=== PATIENT | female | born 1975 | race Caucasian/White ===

== ENCOUNTER 2016-09-21 17:45 | Emergency (ER) | payer OTHER ==
[~2016-09-21] VITALS: Ht 149.9 cm; Wt 80.6 kg
[~2016-09-21 17:45] MED LIST: ACARBOSE50 MG PO; ASPIR-TRIN325 M1 PO; B12 5,000 MCG1 EACH SL; CALTRATE 6001 TABLE2 PO; CARAFATE100 MG/ML PO; COBAL-10001000 MCG/2 IM; CYCLOBENZAPRINE10 MG PO; Cipro PO; FERGON324 MG PO; FLEXERIL5 MG PO; HYDROCODON-ACE1 EAC7 PO; IRON PO; IRON325 M1 PO; MULTIVITAMIN1 EAC1 PO; NEURONTIN300 MG OP; NORCO 5/3251 TABLET PO; PRECOSE50 MG PO; PROTONIX40 MG PO; SERTRALINE HCL100 MG PO; TRAMADOL HCL50 MG PO; VALIUM2 MG PO
[2016-09-21] MEDS ORDERED: INDOCIN50 MG PO (18:42)
[2016-09-21 19:04] VITALS: BP 142/89
== END 2016-09-21 19:07 | disposition home or self-care (01) ==
LOC: RME 17:45 → EME 17:45 → RME 19:07
DX: S29.011A Strain of muscle and tendon of front wall of thorax, initial encounter (principal); F17.200 Nicotine dependence, unspecified, uncomplicated; Z98.84 Bariatric surgery status
CPT/HCPCS: 71020; 99281; 99285; J1885; J3010

== ENCOUNTER 2016-09-27 20:07 | Emergency (ER) | payer OTHER ==
[~2016-09-27] VITALS: Ht 149.9 cm; Wt 80.8 kg
[~2016-09-27 20:07] MED LIST changes: +INDOCIN50 MG PO
[2016-09-27 20:48] LABS: HEMATOCRIT 35.6 % (36.0-46.0); MCH 23.5 PG (29.0-34.0); MCHC 30.3 G/DL (30.0-36.0); MCV 77.4 FL (83-99); PLATELET COUNT 428 K/uL (156-360); RBC DIS.WIDTH-CV 15.7 % (11.8-14.6); RBC DIS.WIDTH-SD 43.7 % (39-53); WHITE BLOOD COUNT 8.7 K/uL (4.1-10.2)
[2016-09-27 21:11] LABS: CHLORIDE 107 mEq/L (99-109); SODIUM 138 mEq/L (136-147)
[2016-09-27 21:13] LABS: GLUCOSE 99 mg/dL (70-99)
[2016-09-27 21:15] LABS: ANION GAP 9 MEQ/L (2-14); TOTAL BILIRUBIN 0.3 mg/dL (0.0-1.0)
[2016-09-27 21:17] LABS: ALKALINE PHOSPHATASE 121 IU/L (3-129); GFR ESTIMATE (CALCULATED) > 59 mL/min/
[2016-09-27 21:18] LABS: UREA NITROGEN (BUN) 11 mg/dL (9-23)
[2016-09-27 21:30] LABS: QUANTITATIVE HCG < 4.0 MIU/ML
[2016-09-27 23:47] LABS: ADD MIUA? YES; BILIRUBIN NEGATIVE; BLOOD SMALL; COLOR YELLOW ((YELLOW)); GLUCOSE (STRIP) NEGATIVE; KETONES NEGATIVE; LEUKOCYTES LARGE; NITRITE NEGATIVE; PROTEIN (STRIP) NEGATIVE; SPECIFIC GRAVITY 1.004 (1.000-1.030); UROBILINOGEN 0.2 MG/DL (0.2-1.0)
[2016-09-28] MEDS ORDERED: MIRALAX255 GM PO (00:09)
[2016-09-28] MEDS ORDERED: BENTYL20 MG PO (00:09)
[2016-09-28 00:21] LABS: BACTERIA 2+ /HPF; CASTS NONE SEEN /LPF; EPITHELIAL CELLS 3+ /HPF; MUCUS NONE SEEN /LPF; RED BLOOD CELLS 0-5 /HPF (0-5); UCUL ADDED? YES; WHITE BLOOD CELLS 30-40 /HPF (0-5)
[2016-09-28 00:22] LABS: CRYSTALS NONE SEEN
[2016-09-28 00:33] VITALS: BP 119/76
== END 2016-09-28 00:35 | disposition home or self-care (01) ==
LOC: EME 20:07
DX: K59.00 Constipation, unspecified (principal); K52.9 Noninfective gastroenteritis and colitis, unspecified; R39.15 Urgency of urination; Z98.84 Bariatric surgery status; Z87.442 Personal history of urinary calculi; F17.200 Nicotine dependence, unspecified, uncomplicated
CPT/HCPCS: 74000; 74176; 80053; 81003; 84702; 85027; 87086; 99281; 99283

== ENCOUNTER 2017-01-02 10:37 | Emergency (ER) | payer OTHER ==
[~2017-01-02] VITALS: Ht 149.9 cm; Wt 74.3 kg
[~2017-01-02 10:37] MED LIST changes: +BENTYL20 MG PO; +MIRALAX255 GM PO
[2017-01-02 12:02] LABS: ADD MIUA? NO; BILIRUBIN NEGATIVE; BLOOD NEGATIVE; COLOR YELLOW ((YELLOW)); GLUCOSE (STRIP) NEGATIVE; KETONES NEGATIVE; LEUKOCYTES NEGATIVE; NITRITE NEGATIVE; PROTEIN (STRIP) NEGATIVE; SPECIFIC GRAVITY 1.005 (1.000-1.030); UCUL ADDED? NO; UROBILINOGEN 0.2 MG/DL (0.2-1.0)
[2017-01-02 12:08] LABS: HEMATOCRIT 34.1 % (36.0-46.0); MCH 23.1 PG (29.0-34.0); MCHC 30.5 G/DL (30.0-36.0); MCV 75.8 FL (83-99); MEAN PLAT.VOLUME 10.6 uM^3 (9.5-12.4); PLATELET COUNT 370 K/uL (156-360); RBC DIS.WIDTH-SD 43.6 % (39-53); WHITE BLOOD COUNT 11.7 K/uL (4.1-10.2)
[2017-01-02 12:22] LABS: CHLORIDE 105 mEq/L (99-109); POTASSIUM 4.7 mEq/L (3.7-5.4); SODIUM 135 mEq/L (136-147)
[2017-01-02 12:24] LABS: GLUCOSE 108 mg/dL (70-99)
[2017-01-02 12:25] LABS: ANION GAP 6 MEQ/L (2-14)
[2017-01-02 12:26] LABS: TOTAL BILIRUBIN 0.7 mg/dL (0.0-1.0)
[2017-01-02 12:27] LABS: ALKALINE PHOSPHATASE 103 IU/L (3-129)
[2017-01-02 12:28] LABS: GFR ESTIMATE (CALCULATED) > 59 mL/min/
[2017-01-02 12:29] LABS: UREA NITROGEN (BUN) 10 mg/dL (9-23)
[2017-01-02 12:31] LABS: LIPASE 14 U/L (1.0-51.0)
[2017-01-02 12:39] LABS: QUANTITATIVE HCG < 4.0 MIU/ML
[2017-01-02] MEDS ORDERED: NORCO 5/3251 TABLET PO (13:16)
[2017-01-02] MEDS ORDERED: BENTYL20 MG PO (13:16)
[2017-01-02 13:28] VITALS: BP 125/65
== END 2017-01-02 13:29 | disposition home or self-care (01) ==
LOC: EME 10:37
DX: R10.30 Lower abdominal pain, unspecified (principal); R00.1 Bradycardia, unspecified; F17.200 Nicotine dependence, unspecified, uncomplicated; Z98.84 Bariatric surgery status; Z87.442 Personal history of urinary calculi; Z90.49 Acquired absence of other specified parts of digestive tract
CPT/HCPCS: 74000; 80053; 81003; 83690; 84702; 85027; 99281; 99283

== ENCOUNTER 2017-02-14 18:31 | Emergency (ER) | payer OTHER ==
[~2017-02-14] VITALS: Ht 149.9 cm; Wt 70.6 kg
[2017-02-14 19:52] LABS: HEMATOCRIT 33.6 % (36.0-46.0); MCH 23.4 PG (29.0-34.0); MCHC 31.3 G/DL (30.0-36.0); MEAN PLAT.VOLUME 9.7 uM^3 (9.5-12.4); PLATELET COUNT 369 K/uL (156-360); RBC DIS.WIDTH-CV 16.5 % (11.8-14.6); RBC DIS.WIDTH-SD 44.5 % (39-53); RED BLOOD COUNT 4.48 M/uL (3.80-5.20); WHITE BLOOD COUNT 9.1 K/uL (4.1-10.2)
[2017-02-14 20:11] LABS: ANION GAP 10 MEQ/L (2-14); CHLORIDE 109 MEQ/L (99-109); POTASSIUM 3.9 MEQ/L (3.7-5.4); SAMPLE HEMOLYSIS CHECK 0; SAMPLE ICTERIC CHECK 0; SAMPLE LIPEMIA CHECK 0; SODIUM 141 MEQ/L (136-147)
[2017-02-14 20:35] LABS: QUANTITATIVE HCG < 4.0 MIU/ML
[2017-02-14 20:36] LABS: GFR ESTIMATE (CALCULATED) > 59 mL/min/; GLUCOSE 97 mg/dL (70-99); SERUM ETHYL ALCOHOL < 10 mg/dL; UREA NITROGEN (BUN) 8 mg/dL (9-23)
[2017-02-14 21:12] LABS: ADD MEDTOX COMMENT Y; AMPHETAMINE NEGATIVE (500 ng/mL); BARBITURATES NEGATIVE (200 ng/mL); BENZODIAZEPINES PRESUMPTIVE POSITIVE (150 ng/mL); COCAINE NEGATIVE (150 ng/mL); INTERNAL CONTROLS VALID? YES; METHADONE NEGATIVE (200 ng/mL); METHAMPHETAMINE NEGATIVE (500 ng/mL); OPIATES (MORPHINE) NEGATIVE (100 ng/mL); OXYCODONE NEGATIVE (100 ng/mL); PHENCYCLIDINE NEGATIVE (25 ng/mL); PROPOXYPHENE NEGATIVE (300 ng/mL); THC CANNABINOIDS NEGATIVE (50 ng/mL); TRICYCLIC ANTIDEPRESSANTS NEGATIVE (300 ng/mL)
[2017-02-14 21:56] VITALS: BP 136/92
[2017-02-14 22:01] LABS: BENZODIAZEPINES QUANT VALUE 0 NG/ML; BENZODIAZEPINES, URINE SCREEN Negative (200 ng/mL)
== END 2017-02-14 21:57 | disposition home or self-care (01) ==
LOC: EME 18:31
PROVIDERS: Emergency Medicine
DX: F33.2 Major depressive disorder, recurrent severe without psychotic features (principal); F60.3 Borderline personality disorder; F17.200 Nicotine dependence, unspecified, uncomplicated; Z87.442 Personal history of urinary calculi; Z98.84 Bariatric surgery status
CPT/HCPCS: 80048; 84702; 84999; 85027; 90839; 99281; 99285; G0480

== ENCOUNTER 2017-04-25 10:45 | Emergency (ER) | payer OTHER ==
[~2017-04-25] VITALS: Ht 149.9 cm; Wt 69.1 kg
[2017-04-25 11:38] LABS: HEMATOCRIT 36.3 % (36.0-46.0); MCH 23.2 PG (29.0-34.0); MCHC 30.6 G/DL (30.0-36.0); MCV 75.9 FL (83-99); MEAN PLAT.VOLUME 10.1 uM^3 (9.5-12.4); PLATELET COUNT 448 K/uL (156-360); RBC DIS.WIDTH-CV 15.4 % (11.8-14.6); RBC DIS.WIDTH-SD 42.4 % (39-53); RED BLOOD COUNT 4.78 M/uL (3.80-5.20); WHITE BLOOD COUNT 8.1 K/uL (4.1-10.2)
[2017-04-25 11:47] LABS: CHLORIDE 109 mEq/L (99-109); POTASSIUM 4.2 mEq/L (3.7-5.4); SODIUM 141 mEq/L (136-147)
[2017-04-25 11:49] LABS: GLUCOSE 98 mg/dL (70-99)
[2017-04-25 11:50] LABS: ANION GAP 8 MEQ/L (2-14)
[2017-04-25 11:51] LABS: TOTAL BILIRUBIN 0.5 mg/dL (0.0-1.0)
[2017-04-25 11:52] LABS: ALKALINE PHOSPHATASE 132 IU/L (3-129)
[2017-04-25 11:53] LABS: GFR ESTIMATE (CALCULATED) > 59 mL/min/
[2017-04-25 11:54] LABS: UREA NITROGEN (BUN) 9 mg/dL (9-23)
[2017-04-25 12:02] LABS: QUANTITATIVE HCG < 4.0 MIU/ML
[2017-04-25 12:36] LABS: ADD MIUA? NO; BILIRUBIN NEGATIVE; BLOOD NEGATIVE; COLOR YELLOW ((YELLOW)); GLUCOSE (STRIP) NEGATIVE; KETONES NEGATIVE; LEUKOCYTES NEGATIVE; NITRITE NEGATIVE; PROTEIN (STRIP) NEGATIVE; SPECIFIC GRAVITY 1.014 (1.000-1.030); UCUL ADDED? NO
[2017-04-25 14:44] LABS: LIPASE 38 U/L (1.0-51.0)
[2017-04-25] MEDS ORDERED: BENTYL20 MG PO (15:09)
[2017-04-25] MEDS ORDERED: ZOFRAN ODT8 MG PO (15:09)
[2017-04-25 15:19] VITALS: BP 150/91
== END 2017-04-25 15:21 | disposition home or self-care (01) ==
LOC: EME 10:45
DX: R10.33 Periumbilical pain (principal); R11.0 Nausea; M54.9 Dorsalgia, unspecified; Z87.442 Personal history of urinary calculi; Z90.49 Acquired absence of other specified parts of digestive tract; Z98.84 Bariatric surgery status; F17.200 Nicotine dependence, unspecified, uncomplicated
CPT/HCPCS: 74177; 80053; 81003; 83690; 84702; 85027; 99281; 99284; J2270; J2405; J7030

== ENCOUNTER 2017-11-10 17:38 | Emergency (ER) | payer OTHER ==
[~2017-11-10] VITALS: Ht 149.9 cm; Wt 70.9 kg
[~2017-11-10 17:38] MED LIST changes: +ZOFRAN ODT8 MG PO
[2017-11-10 18:28] LABS: APPEARANCE CLOUDY ((CLEAR)); BILIRUBIN NEGATIVE; BLOOD SMALL; COLOR YELLOW ((YELLOW)); GLUCOSE (STRIP) 50; KETONES 20; LEUKOCYTES TRACE; NITRITE NEGATIVE; PROTEIN (STRIP) 30; SPECIFIC GRAVITY 1.021 (1.000-1.030)
[2017-11-10 18:31] LABS: ALBUMIN 4.3 g/dL (3.2-4.8)
[2017-11-10 18:32] LABS: CHLORIDE 107 mEq/L (99-109); HEMATOCRIT 36.4 % (36.0-46.0); HEMOGLOBIN 11.2 G/DL (11.9-15.5); MCH 22.9 PG (29.0-34.0); MCHC 30.8 G/DL (30.0-36.0); MCV 74.3 FL (83-99); PLATELET COUNT 412 K/uL (156-360); POTASSIUM 4.8 mEq/L (3.7-5.4); RBC DIS.WIDTH-CV 16.8 % (11.8-14.6); RBC DIS.WIDTH-SD 44.9 % (39-53); SODIUM 137 mEq/L (136-147); WHITE BLOOD COUNT 11.7 K/uL (4.1-10.2)
[2017-11-10 18:34] LABS: GLUCOSE 172 mg/dL (70-99); TOTAL PROTEIN 7.6 g/dL (6.4-8.3)
[2017-11-10 18:36] LABS: TOTAL BILIRUBIN 0.6 mg/dL (0.0-1.0)
[2017-11-10 18:37] LABS: ALKALINE PHOSPHATASE 119 IU/L (3-129)
[2017-11-10 18:38] LABS: CREATININE 0.7 mg/dL (0.6-1.3); GFR ESTIMATE (CALCULATED) > 59 mL/min/
[2017-11-10 18:39] LABS: AST (GOT) 20 IU/L (2-34); UREA NITROGEN (BUN) 8 mg/dL (9-23)
[2017-11-10 18:41] LABS: ALT (GPT) 16 IU/L (3-49)
[2017-11-10 18:43] LABS: EPITHELIAL CELLS 4+ /HPF; MUCUS 1+ /LPF; RED BLOOD CELLS 0-5 /HPF (0-5)
[2017-11-10 18:44] LABS: BACTERIA 2+ /HPF; UCUL ADDED? YES
[2017-11-10 18:49] LABS: QUANTITATIVE HCG < 4.0 MIU/ML
[2017-11-10 19:03] LABS: LIPASE 8 U/L (1.0-51.0)
[2017-11-10] MEDS ORDERED: BENTYL20 MG PO (20:23)
[2017-11-10] MEDS ORDERED: ZOFRAN ODT8 MG PO (20:23)
[2017-11-10 20:33] VITALS: BP 154/62
== END 2017-11-10 20:35 | disposition home or self-care (01) ==
LOC: EME 17:38
DX: R10.11 Right upper quadrant pain (principal); R11.2 Nausea with vomiting, unspecified; Z87.442 Personal history of urinary calculi; Z90.49 Acquired absence of other specified parts of digestive tract; Z98.84 Bariatric surgery status; F32.9 Major depressive disorder, single episode, unspecified; F41.9 Anxiety disorder, unspecified; F17.200 Nicotine dependence, unspecified, uncomplicated
CPT/HCPCS: 74177; 80053; 81003; 83690; 84702; 85027; 87086; 99281; 99285; J1885; J2405; J3010; J7040

== ENCOUNTER 2017-12-29 13:29 | Emergency (ER) | payer OTHER ==
[~2017-12-29] VITALS: Ht 149.9 cm; Wt 66.0 kg
[2017-12-29 14:16] LABS: HEMOGLOBIN 10.8 G/DL (11.9-15.5); MCH 22.5 PG (29.0-34.0); MCHC 30.9 G/DL (30.0-36.0); MCV 72.9 FL (83-99); PLATELET COUNT 443 K/uL (156-360); RBC DIS.WIDTH-CV 16.5 % (11.8-14.6); WHITE BLOOD COUNT 9.4 K/uL (4.1-10.2)
[2017-12-29 14:19] LABS: ALBUMIN 4.3 g/dL (3.2-4.8); CHLORIDE 105 mEq/L (99-109); SODIUM 138 mEq/L (136-147)
[2017-12-29 14:21] LABS: GLUCOSE 121 mg/dL (70-99); TOTAL PROTEIN 7.3 g/dL (6.4-8.3)
[2017-12-29 14:23] LABS: TOTAL BILIRUBIN 0.7 mg/dL (0.0-1.0)
[2017-12-29 14:25] LABS: ALKALINE PHOSPHATASE 148 IU/L (3-129); CREATININE 0.7 mg/dL (0.6-1.3); GFR ESTIMATE (CALCULATED) > 59 mL/min/
[2017-12-29 14:26] LABS: AST (GOT) 18 IU/L (2-34); UREA NITROGEN (BUN) 10 mg/dL (9-23)
[2017-12-29 14:28] LABS: ALT (GPT) 16 IU/L (3-49); LIPASE 5 U/L (1.0-51.0)
[2017-12-29] MEDS ORDERED: CARAFATE100 MG/ML PO (15:59)
[2017-12-29] MEDS ORDERED: NORCO 5/3251 TABLET PO (15:59)
[2017-12-29] MEDS ORDERED: ZOFRAN ODT4 MG PO (15:59)
[2017-12-29 16:29] LABS: APPEARANCE CLOUDY ((CLEAR)); BILIRUBIN NEGATIVE; BLOOD NEGATIVE; COLOR YELLOW ((YELLOW)); GLUCOSE (STRIP) NEGATIVE; KETONES 5; LEUKOCYTES NEGATIVE; NITRITE NEGATIVE; PROTEIN (STRIP) 30; SPECIFIC GRAVITY 1.015 (1.000-1.030)
[2017-12-29 16:39] VITALS: BP 141/93
[2017-12-29 16:43] LABS: BACTERIA 1+ /HPF; EPITHELIAL CELLS 4+ /HPF; MUCUS NONE SEEN /LPF; RED BLOOD CELLS 0-5 /HPF (0-5); WHITE BLOOD CELLS 0-5 /HPF (0-5)
== END 2017-12-29 16:41 | disposition home or self-care (01) ==
LOC: EME 13:29
PROVIDERS: Nurse Practitioner Family
DX: R10.13 Epigastric pain (principal); R11.0 Nausea; D64.9 Anemia, unspecified; R19.7 Diarrhea, unspecified; R03.0 Elevated blood-pressure reading, without diagnosis of hypertension; F17.200 Nicotine dependence, unspecified, uncomplicated; Z87.442 Personal history of urinary calculi; Z98.84 Bariatric surgery status; Z90.49 Acquired absence of other specified parts of digestive tract; Z87.11 Personal history of peptic ulcer disease
CPT/HCPCS: 74022; 80053; 81003; 83690; 85027; 93005; 99281; 99285; J2405; J3010; J7030

== ENCOUNTER 2018-02-15 18:37 | Emergency (ER) | payer OTHER ==
[~2018-02-15] VITALS: Ht 149.9 cm; Wt 58.4 kg
[~2018-02-15 18:37] MED LIST changes: +ZOFRAN ODT4 MG PO
[2018-02-15 20:30] LABS: BASOPHIL (%) 0.5 % (0-1); BASOPHIL COUNT 0.1 K/uL (0-0.1); EOSINOPHIL (%) 0 % (0-5); IMMATURE GRANULOCYTE (%) 0.3 % (0.0-0.7); LYMPHOCYTE (%) 13.3 % (15-42); LYMPHOCYTE COUNT 1.3 K/uL (1.0-2.8); MCH 22.4 PG (29.0-34.0); MCHC 30.6 G/DL (30.0-36.0); MCV 73.5 FL (83-99); MONOCYTE (%) 3.7 % (3-12); MONOCYTE COUNT 0.4 K/uL (0-0.8); NEUTROPHIL (%) 82.2 % (45-76); NEUTROPHIL COUNT 8.1 K/uL (1.8-6.4); PLATELET COUNT 453 K/uL (156-360); RBC DIS.WIDTH-CV 17.2 % (11.8-14.6); RBC DIS.WIDTH-SD 45.7 % (39-53); WHITE BLOOD COUNT 9.9 K/uL (4.1-10.2)
[2018-02-15 20:31] LABS: ALBUMIN 3.7 g/dL (3.2-4.8)
[2018-02-15 20:32] LABS: CHLORIDE 109 mEq/L (99-109); POTASSIUM 4.3 mEq/L (3.7-5.4); SODIUM 143 mEq/L (136-147)
[2018-02-15 20:34] LABS: GLUCOSE 138 mg/dL (70-99); TOTAL PROTEIN 6.8 g/dL (6.4-8.3)
[2018-02-15 20:36] LABS: TOTAL BILIRUBIN 0.4 mg/dL (0.0-1.0)
[2018-02-15 20:37] LABS: ALKALINE PHOSPHATASE 153 IU/L (3-129)
[2018-02-15 20:38] LABS: CREATININE 0.7 mg/dL (0.6-1.3); GFR ESTIMATE (CALCULATED) > 59 mL/min/
[2018-02-15 20:39] LABS: AST (GOT) 14 IU/L (2-34); UREA NITROGEN (BUN) 8 mg/dL (9-23)
[2018-02-15 20:41] LABS: ALT (GPT) 15 IU/L (3-49)
[2018-02-15 23:57] LABS: APPEARANCE SL.HAZY ((CLEAR)); BILIRUBIN NEGATIVE; BLOOD NEGATIVE; COLOR YELLOW ((YELLOW)); GLUCOSE (STRIP) NEGATIVE; KETONES NEGATIVE; LEUKOCYTES NEGATIVE; NITRITE NEGATIVE; PROTEIN (STRIP) NEGATIVE; SPECIFIC GRAVITY > 1.060 (1.000-1.030); UROBILINOGEN 0.2 MG/DL (0.2-1.0)
[2018-02-16 00:31] LABS: BACTERIA 2+ /HPF; EPITHELIAL CELLS 1+ /HPF; MUCUS NONE SEEN /LPF; RED BLOOD CELLS NONE SEEN /HPF (0-5); UCUL ADDED? YES; WHITE BLOOD CELLS 0-5 /HPF (0-5)
[2018-02-16 00:32] LABS: CALCIUM OXALATE CRYSTALS FEW /HPF
[2018-02-16] MEDS ORDERED: PHENERGAN12.5 MG PR (01:20)
[2018-02-16 01:47] VITALS: BP 137/74
== END 2018-02-16 01:49 | disposition home or self-care (01) ==
LOC: EME 18:37
PROVIDERS: Physician Assistant
DX: K52.9 Noninfective gastroenteritis and colitis, unspecified (principal); Z87.19 Personal history of other diseases of the digestive system; K76.0 Fatty (change of) liver, not elsewhere classified; F32.9 Major depressive disorder, single episode, unspecified; F41.9 Anxiety disorder, unspecified; Z87.891 Personal history of nicotine dependence; Z87.442 Personal history of urinary calculi; Z90.49 Acquired absence of other specified parts of digestive tract; Z98.84 Bariatric surgery status; Z88.1 Allergy status to other antibiotic agents
CPT/HCPCS: 74177; 80053; 81003; 85025; 87086; 99281; 99284; J2270; J2405; J3010; J7030

== ENCOUNTER 2018-02-20 11:01 | Emergency (ER) | payer OTHER ==
[~2018-02-20] VITALS: Ht 149.9 cm; Wt 58.8 kg
[~2018-02-20 11:01] MED LIST changes: +PHENERGAN12.5 MG PR
[2018-02-20 11:25] LABS: APPEARANCE SL.HAZY ((CLEAR)); BILIRUBIN NEGATIVE; BLOOD NEGATIVE; COLOR YELLOW ((YELLOW)); GLUCOSE (STRIP) NEGATIVE; KETONES NEGATIVE; LEUKOCYTES NEGATIVE; NITRITE NEGATIVE; PROTEIN (STRIP) NEGATIVE; SPECIFIC GRAVITY 1.004 (1.000-1.030); UROBILINOGEN 0.2 MG/DL (0.2-1.0)
[2018-02-20 11:28] LABS: HEMATOCRIT 39.5 % (36.0-46.0); MCH 22.3 PG (29.0-34.0); MCHC 30.4 G/DL (30.0-36.0); MCV 73.6 FL (83-99); PLATELET COUNT 432 K/uL (156-360); RBC DIS.WIDTH-CV 17.9 % (11.8-14.6); RED BLOOD COUNT 5.37 M/uL (3.80-5.20); WHITE BLOOD COUNT 8.2 K/uL (4.1-10.2)
[2018-02-20 11:30] LABS: BACTERIA 3+ /HPF; EPITHELIAL CELLS 2+ /HPF; HYALINE CASTS 0-5 /LPF; MUCUS TRACE /LPF; RED BLOOD CELLS 0-5 /HPF (0-5); UCUL ADDED? YES
[2018-02-20 12:05] LABS: QUANTITATIVE HCG < 4.0 MIU/ML
[2018-02-20 12:13] LABS: CHLORIDE 104 MEQ/L (99-109); POTASSIUM 4.6 MEQ/L (3.7-5.4); SODIUM 139 MEQ/L (136-147); TOTAL BILIRUBIN 0.5 MG/DL (0.0-1.0)
[2018-02-20 12:19] LABS: ALKALINE PHOSPHATASE 140 IU/L (3-129); ALT (GPT) 12 IU/L (3-49); AST (GOT) 15 IU/L (2-34); CREATININE 0.6 MG/DL (0.6-1.3); GFR ESTIMATE (CALCULATED) > 59 mL/min/; GLUCOSE 135 mg/dL (70-99); LIPASE 8 U/L (1.0-51.0); TOTAL PROTEIN 6.8 G/DL (6.4-8.3); UREA NITROGEN (BUN) 8 mg/dL (9-23)
[2018-02-20] MEDS ORDERED: BACTRIM,SEPT1 TABLET PO (14:30)
[2018-02-20 15:43] VITALS: BP 136/88
[2018-02-22] MEDS ORDERED: BACTRIM,SEPT1 TABLET PO (16:15)
[2018-02-22] MEDS ORDERED: ZOFRAN ODT4 MG PO (16:16)
[2018-02-22] MEDS ORDERED: HYDROCODON-ACE1 EAC9 PO (16:16)
[2018-02-22] MEDS ORDERED: PROTONIX40 MG PO (16:17)
[2018-02-22] MEDS ORDERED: SUCRALFATE1 GM/10 ML PO (16:17)
[2018-02-22] MEDS ORDERED: PROMETHAZINE12.5 M1 PO (16:17)
== END 2018-02-20 15:43 | disposition home or self-care (01) ==
LOC: EME 11:01
DX: N39.0 Urinary tract infection, site not specified (principal); R10.84 Generalized abdominal pain; Z98.84 Bariatric surgery status; Z87.442 Personal history of urinary calculi; F32.9 Major depressive disorder, single episode, unspecified; F41.9 Anxiety disorder, unspecified; Z90.49 Acquired absence of other specified parts of digestive tract; Z87.891 Personal history of nicotine dependence; Z88.8 Allergy status to other drugs, medicaments and biological substances; Z87.19 Personal history of other diseases of the digestive system
CPT/HCPCS: 74177; 80053; 81003; 83690; 84702; 85027; 87086; 99281; 99285; J1630; J7030

== ENCOUNTER → 2018-02-22 | Outpatient (CLI) | payer OTHER ==
[~2018-02-22] MED LIST changes: +BACTRIM,SEPT1 TABLET PO; +HYDROCODON-ACE1 EAC9 PO; +PROMETHAZINE12.5 M1 PO; +SUCRALFATE1 GM/10 ML PO
== END | disposition home or self-care (01) ==
LOC: CDC 14:32
DX: Z01.810 Encounter for preprocedural cardiovascular examination (principal); R10.9 Unspecified abdominal pain
CPT/HCPCS: 93000

== ENCOUNTER 2018-02-23 20:55 | Inpatient (IN) | payer OTHER ==
[~2018-02-23] VITALS: Ht 149.9 cm; Wt 56.8 kg
[2018-02-23 21:49] LABS: HEMATOCRIT 35.6 % (36.0-46.0); HEMOGLOBIN 11.1 G/DL (11.9-15.5); MCH 22.7 PG (29.0-34.0); MCHC 31.2 G/DL (30.0-36.0); PLATELET COUNT 393 K/uL (156-360); RBC DIS.WIDTH-CV 18.3 % (11.8-14.6); RBC DIS.WIDTH-SD 46.5 % (39-53); RED BLOOD COUNT 4.88 M/uL (3.80-5.20); WHITE BLOOD COUNT 10.3 K/uL (4.1-10.2)
[2018-02-23 21:57] LABS: CHLORIDE 103 mEq/L (99-109); POTASSIUM 4.5 mEq/L (3.7-5.4); SODIUM 137 mEq/L (136-147)
[2018-02-23 21:59] LABS: GLUCOSE 138 mg/dL (70-99); TOTAL PROTEIN 6.6 g/dL (6.4-8.3)
[2018-02-23 22:01] LABS: TOTAL BILIRUBIN 0.7 mg/dL (0.0-1.0)
[2018-02-23 22:02] LABS: ALKALINE PHOSPHATASE 151 IU/L (3-129)
[2018-02-23 22:03] LABS: CREATININE 0.7 mg/dL (0.6-1.3); GFR ESTIMATE (CALCULATED) > 59 mL/min/
[2018-02-23 22:04] LABS: AST (GOT) 17 IU/L (2-34); UREA NITROGEN (BUN) 10 mg/dL (9-23)
[2018-02-23 22:05] LABS: ALT (GPT) 13 IU/L (3-49)
[2018-02-23 22:06] LABS: LIPASE 5 U/L (1.0-51.0)
[2018-02-23 22:13] LABS: QUANTITATIVE HCG < 4.0 MIU/ML
[2018-02-23] MEDS ORDERED: PHENERGAN12.5 MG PR (23:37)
[2018-02-24 00:34] VITALS: BP 170/92
[2018-02-24 07:16] LABS: HEMATOCRIT 32.1 % (36.0-46.0); HEMOGLOBIN 9.8 G/DL (11.9-15.5); MCH 22.4 PG (29.0-34.0); MCHC 30.5 G/DL (30.0-36.0); MCV 73.3 FL (83-99); PLATELET COUNT 340 K/uL (156-360); RBC DIS.WIDTH-CV 17.8 % (11.8-14.6); RBC DIS.WIDTH-SD 46.5 % (39-53); RED BLOOD COUNT 4.38 M/uL (3.80-5.20); WHITE BLOOD COUNT 8.3 K/uL (4.1-10.2)
[2018-02-24 07:34] LABS: CHLORIDE 106 MEQ/L (99-109); CREATININE 0.5 MG/DL (0.6-1.3); GFR ESTIMATE (CALCULATED) > 59 mL/min/; IRON 39 MCG/DL (35-150); POTASSIUM 4.2 MEQ/L (3.7-5.4); SODIUM 137 MEQ/L (136-147); TRANSFERRIN (TIBC) 217.1 mg/dL (215-380); TRANSFERRIN SATUR. 18 % (20-55); UREA NITROGEN (BUN) 7 mg/dL (9-23)
[2018-02-24 07:43] LABS: GLUCOSE 88 mg/dL (70-99)
[2018-02-24 07:52] VITALS: BP 116/78
[2018-02-24 11:42] VITALS: BP 110/66
[2018-02-24 15:29] VITALS: BP 106/67
[2018-02-24 19:20] VITALS: BP 118/71
[2018-02-24 23:19] VITALS: BP 117/78
[2018-02-25 03:52] VITALS: BP 142/78
[2018-02-25 07:44] VITALS: BP 121/61
[2018-02-25 09:37] LABS: INTER. NORMALIZED RATIO 1.5
[2018-02-25 09:39] LABS: PTT 32.5 SEC (25-37)
[2018-02-25 11:29] VITALS: BP 122/64
[2018-02-25 19:59] VITALS: BP 174/81
[2018-02-26 00:08] VITALS: BP 102/58
[2018-02-26 03:40] VITALS: BP 114/62
[2018-02-26 06:46] LABS: HEMATOCRIT 34.3 % (36.0-46.0); HEMOGLOBIN 10.4 G/DL (11.9-15.5); MCH 22.5 PG (29.0-34.0); MCHC 30.3 G/DL (30.0-36.0); MCV 74.2 FL (83-99); PLATELET COUNT 336 K/uL (156-360); RBC DIS.WIDTH-CV 18.5 % (11.8-14.6); RBC DIS.WIDTH-SD 47.7 % (39-53); RED BLOOD COUNT 4.62 M/uL (3.80-5.20)
[2018-02-26 07:06] LABS: CHLORIDE 100 MEQ/L (99-109); CREATININE 0.7 MG/DL (0.6-1.3); GFR ESTIMATE (CALCULATED) > 59 mL/min/; GLUCOSE 101 mg/dL (70-99); SODIUM 137 MEQ/L (136-147); UREA NITROGEN (BUN) 9 mg/dL (9-23)
[2018-02-26 07:14] VITALS: BP 108/65
[2018-02-26 11:25] VITALS: BP 99/56
[2018-02-26 21:15] VITALS: BP 101/61
[2018-02-27 00:53] VITALS: BP 112/65
[2018-02-27 04:52] VITALS: BP 116/64
[2018-02-27 07:22] LABS: HEMATOCRIT 30.2 % (36.0-46.0); HEMOGLOBIN 9.3 G/DL (11.9-15.5); MCH 22.6 PG (29.0-34.0); MCHC 30.8 G/DL (30.0-36.0); MCV 73.3 FL (83-99); PLATELET COUNT 292 K/uL (156-360); RBC DIS.WIDTH-CV 19.1 % (11.8-14.6); RBC DIS.WIDTH-SD 49.1 % (39-53); RED BLOOD COUNT 4.12 M/uL (3.80-5.20)
[2018-02-27 07:31] LABS: CHLORIDE 103 MEQ/L (99-109); CREATININE 0.4 MG/DL (0.6-1.3); GFR ESTIMATE (CALCULATED) > 59 mL/min/; POTASSIUM 4.1 MEQ/L (3.7-5.4); SODIUM 138 MEQ/L (136-147); UREA NITROGEN (BUN) 8 mg/dL (9-23)
[2018-02-27 07:32] VITALS: BP 117/67
[2018-02-27 07:34] LABS: GLUCOSE 67 mg/dL (70-99)
[2018-02-27] MEDS ORDERED: HYDROMORPHONE HC4 MG PO (10:35)
[2018-02-27] MEDS ORDERED: PROTONIX40 MG PO (10:35)
[2018-02-27] MEDS ORDERED: ZOFRAN ODT4 MG PO (10:35)
[2018-02-27] MEDS ORDERED: COLACE100 MG PO (10:35)
[2018-02-27 11:04] VITALS: BP 121/79
== END 2018-02-27 14:50 | disposition home or self-care (01) | DRG 327 ==
LOC: EME 20:55 → 2EAST 23:13 → EDOF 23:13 → 2EAST 02-24 00:25
PROVIDERS: Family Medicine Sports Medicine; Surgery
PROC: 0DB64ZZ Excision of Stomach, Percutaneous Endoscopic Approach (ICD-10-PCS; principal; 2018-02-25)
PROC: 0DN64ZZ Release Stomach, Percutaneous Endoscopic Approach (ICD-10-PCS; principal; 2018-02-25)
PROC: 0DNA4ZZ Release Jejunum, Percutaneous Endoscopic Approach (ICD-10-PCS; principal; 2018-02-25)
PROC: 0D1647A Bypass Stomach to Jejunum with Autologous Tissue Substitute, Percutaneous Endoscopic Approach (ICD-10-PCS; principal; 2018-02-25)
PROC: 0DJ08ZZ Inspection of Upper Intestinal Tract, Via Natural or Artificial Opening Endoscopic (ICD-10-PCS; principal; 2018-02-25)
DX: K95.89 Other complications of other bariatric procedure (principal); E46 Unspecified protein-calorie malnutrition; F33.9 Major depressive disorder, recurrent, unspecified; Y83.2 Surgical operation with anastomosis, bypass or graft as the cause of abnormal reaction of the patient, or of later complication, without mention of misadventure at the time of the procedure; K21.9 Gastro-esophageal reflux disease without esophagitis; K28.9 Gastrojejunal ulcer, unspecified as acute or chronic, without hemorrhage or perforation; J44.9 Chronic obstructive pulmonary disease, unspecified; F41.9 Anxiety disorder, unspecified; F17.210 Nicotine dependence, cigarettes, uncomplicated; E86.0 Dehydration; E78.5 Hyperlipidemia, unspecified; D64.9 Anemia, unspecified; E11.649 Type 2 diabetes mellitus with hypoglycemia without coma; K66.8 Other specified disorders of peritoneum; K52.9 Noninfective gastroenteritis and colitis, unspecified; R33.9 Retention of urine, unspecified; Z98.84 Bariatric surgery status; Y92.89 Other specified places as the place of occurrence of the external cause; Z88.1 Allergy status to other antibiotic agents; Z87.442 Personal history of urinary calculi; Z91.19 Patient's noncompliance with other medical treatment and regimen; Z68.25 Body mass index [BMI] 25.0-25.9, adult; Z90.49 Acquired absence of other specified parts of digestive tract
CPT/HCPCS: 36415; 74019; 74177; 74220; 80048; 80053; 81003; 82150 91; 83540; 83690; 84466; 84702; 85025; 85027; 85610; 85730; 86850; 86900; 86901; 87086; 87641; 88307; 93000; 99281; 99285; C9113; J0131; J0360; J1100; J1170; J1630; J1644; J2250; J2270; J2405; J2550; J3010; J3370; J7030; J7120; Q0169; S0074